=== PATIENT | female | born 1935 | race Caucasian/White ===

== ENCOUNTER 2021-01-23 15:23 | Outpatient (CLI) | payer MEDICARE, BC, SELFPAY | END 2021-01-23 15:24 | disposition home or self-care (01) | LOC: ANHCOVIDVC 15:23 | PROVIDERS: PCP Family Medicine | DX: Z23 Encounter for immunization (principal) | CPT/HCPCS: 0001A; 91300 ==

== ENCOUNTER 2021-02-13 15:31 | Outpatient (CLI) | payer MEDICARE, BC, SELFPAY | END 2021-02-13 15:32 | disposition home or self-care (01) | LOC: ANHCOVIDVC 15:31 | PROVIDERS: PCP Family Medicine | DX: Z23 Encounter for immunization (principal) | CPT/HCPCS: 0002A; 91300 ==

== ENCOUNTER 2021-12-29 14:24 | Outpatient (CLI) | payer MEDICARE, BC, SELFPAY ==
--- NOTE | ~2021-12-29 | XR_ITS ---
XR chest 2V 12/29/2021 14:43 Indication: Cough. CHF. Procedure: AP and lateral views of the chest Comparison: 05/23/2017 Findings: Bilateral patchy airspace disease. Status post median sternotomy for CABG. Cardiomegaly. No pleural effusion or pneumothorax. Impression: 1: Patchy bilateral airspace disease, left greater than right, compatible with pneumonia. 2: Cardiomegaly. Reviewed, dictated and finalized at location B. Impression: 1: Patchy bilateral airspace disease, left greater than right, compatible with pneumonia. 2: Cardiomegaly.
== END 2021-12-29 14:25 | disposition home or self-care (01) ==
LOC: ANHIMG 14:27
PROVIDERS: PCP Nurse Practitioner Family; Visit Provider Nurse Practitioner Family
DX: R05.9 Cough, unspecified (principal); R91.8 Other nonspecific abnormal finding of lung field; I51.7 Cardiomegaly
CPT/HCPCS: 71046

== ENCOUNTER 2022-01-06 06:03 | Inpatient (IN) | payer MEDICARE, BC, OTHER, SELFPAY ==
[2022-01-06] VITALS (27 sets, daily range): BP systolic 89–107; BP diastolic 42–71; PULSE 78–120; RESP 14–25; TEMP 35.5–37; O2SAT 82–100; BMI 26.8
--- NOTE | ~2022-01-06 | US_ITS ---
EXAMINATION: US retroperitoneal comp EXAM DATE: 01/09/2022 10:48 INDICATION: EFREN . TECHNIQUE: Multiple grayscale and Doppler images of the kidneys were obtained (by a technologist who performed the scan) and subsequently reviewed. Comparison is made to prior examination from 05/23/2017 . FINDINGS: Right kidney: There is normal contour and echogenicity. It measures 10.3 x 5.5 x 5.1 centimeters. Th ere is an exophytic cyst measuring 2.9 cm. There is no hydronephrosis. Left kidney: There is normal contour and echogenicity. It measures 9.1 x 4.8 x 4.5 centimeters. Ther e is a cyst measuring 1 cm. There is no hydronephrosis. Bladder unremarkable. IMPRESSION: Renal cysts. No hydronephrosis. Reviewed, dictated and finalized at location B.
--- NOTE | ~2022-01-06 | XR_ITS ---
EXAMINATION: XR chest 1V portable DATE: 01/06/2022 07:04 INDICATION: Shortness of breath TECHNIQUE: frontal view of the chest was obtained. COMPARISON: Chest radiograph dated 12/29/2021 FINDINGS: Increasing opacities in the bilateral mid and lower lung zones. The costophrenic angles consistent wi th small bilateral pleural effusions. Calcified nodule in the left lower lung zone consistent with ol d granulomatous disease. No pneumothorax. Cardiomegaly. Median sternotomy wires and mediastinal surgi richard clips are seen, likely from prior coronary artery bypass grafting. Advanced bilateral rotator cuf f arthropathy. Additional surgical clips the left side of the neck. IMPRESSION: 1. Increasing opacities in bilateral mid and lower lung zones which could represent pneumonia or pulm onary edema. 2. Small bilateral pleural effusions. 3. Cardiomegaly. Reviewed, dictated and finalized at location A. IMPRESSION: 1. Increasing opacities in bilateral mid and lower lung zones which could repre sent pneumonia or pulmonary edema. 2. Small bilateral pleural effusions. 3. Cardiomegaly.
--- NOTE | ~2022-01-06 | XR_ITS ---
EXAMINATION: XR chest 1V portable DATE: 01/08/2022 10:27 INDICATION: Leukocytosis. TECHNIQUE: A single frontal view of the chest was obtained. COMPARISON: Chest single view 01/06/2022, chest CT 01/06/2022 FINDINGS: The patient is rotated to her left. There are airspace opacities in the mid and lower lung zones with a perihilar and left basilar predominance. There are small pleural effusions. No pneumotho rax. Cardiomegaly is noted. Median sternotomy wires and mediastinal surgical clips are seen, likely f rom prior coronary artery bypass grafting. IMPRESSION: 1. Airspace opacities in the mid and lower lung zones with a perihilar and left basilar predominance with improvement on the right, consistent with pneumonia. 2. Small pleural effusions. 3. Cardiomegaly. Reviewed, dictated and finalized at location A.
--- NOTE | ~2022-01-06 | CT_ITS ---
EXAMINATION: CT diagnostic chest wo con EXAM DATE: 01/06/2022 15:29 INDICATION: Recurrent pneumonia. TECHNIQUE: Spiral CT of the chest without contrast. Axial, coronal and sagittal images of the chest were reviewed. Coronal maximum intensity pixel images of chest reviewed. The dose-length product ( DLP) for this examination was 407.00 mGy-cm. The exposure was tailored according to patient size (au to mA exposure control), and iterative reconstruction (ASIR) was used as additional dose reduction te chnique. Correlation is made to chest x-ray 01/06/2022, 12/29/2021. FINDINGS: There is patchy left lung airspace disease also with volume loss and interlobular septal t hickening. Appearance is consistent with atelectasis and pneumonia, although lymphangitic carcinomat osis is not excludable. Patchy regions bilateral lower lobe endobronchial debris. There is possible left suprahilar 1.2 cm nodule contiguous with the hilum, contrast would aid in conf irming or excluding but GFR presently in adequate. There is right lower lobe multisegmental atelectas is. There is moderate right-sided pleural effusion, small left pleural effusion. Cardiomegaly. The main, central pulmonary arteries are dilated which can indicate elevated pulmonary arterial pressure, pulmonary arterial hypertension. Sternotomy wires. Dense coronary artery calcifi cations and/or stents. Generalized body wall edema. Nonspecific generalized periportal, retroperitone al edema as well. There are no osteoblastic or osteolytic lesions identified. Correlating with recent chest x-rays, there has been progression in airspace disease, pleural effusio ns compared to 12/29. IMPRESSION: 1. Left-sided volume loss and additional airspace disease most consistent with multifocal pneumonia. 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 2. Possible left suprahilar 1.2 cm nodule. 3. Cardiomegaly, dilated pulmonary arteries. Possible CHF exacerbation. 4. Moderate right, small pleural effusions. 5. Generalized edema. Reviewed, dictated and finalized at location G.
--- NOTE | 2022-01-06 06:20 | ECG_ITS ---
Measurements Intervals [place] Rate: 91 P: ME: 0 QRS: -26 QRSD: 86 T: 194 QT: 255 QTc: 315 Interpretive Statements ATRIAL FIBRILLATION LOW QRS VOLTAGE IN PRECORDIAL LEADS [QRS DEFLECTION < 1.0 mV IN CHEST LEADS] NONSPECIFIC T-WAVE ABNORMALITY ANTERIOR MYOCARDIAL INFARCTION , OLD] INFERIOR MYOCARDIAL INFARCTION , OLD NO PREVIOUS ECG AVAILABLE FOR COMPARISON Electronically Signed On 01-07-2022 8:29:57 CDT by Jacoby Lau M.D.
[2022-01-06] MEDS: IPRATROPIUM BR 0.02% INH SOLN 0.5 MG/2.5 ML VIAL INHALATION (06:33)
[2022-01-06] MEDS: ALBUTEROL SULFATE NEB 2.5 MG/0.5 ML INH 5 MG INHALATION (06:33)
[2022-01-06] MEDS: methylPREDNISolone SOD SUCC 125 MG VIAL 80 MG IV PUSH (06:37)
[2022-01-06 06:43] LABS: Basophils Percent Auto 0.2 % (0.2-1.2); Hematocrit 34.8 % (37.0-47.0); Hemoglobin 10.3 g/dL (12.0-15.0); Immature Granulocyte Absolute 0.08 K/mm3 (0.00-0.031); Immature Granulocyte Percent A 0.5 % (0-0.5); Lymphocytes Absolute Auto 0.88 K/mm3 (0.9-3.2); Lymphocytes Percent Auto 5.1 % (18.3-44.2); Mean Corpuscular HGB Conc 29.6 g/dl (32-36); Mean Corpuscular Volume 87.9 fl (80-100); Mean Platelet Volume 9.9 fl (7.4-10.4); Monocytes Absolute Auto 1.4 K/mm3 (0.1-0.6); Monocytes Percent Auto 8.3 % (2.6-8.5); Neutrophils Absolute Auto 14.8 K/mm3 (1.3-6.7); Neutrophils Percent Auto 85.9 % (45.5-73.1); Platelet Count Result 369 k/mm3 (150-375); Red Blood Count 3.96 M/mm3 (4.2-5.4); Red Cell Distribution Width 16.5 % (11.5-14.5); White Blood Count 17.3 K/mm3 (4.5-10.0)
[2022-01-06 06:47] LABS: Base Excess ABG -2.1 mEq/l (+/-2.0); Fractional Inspired Oxygen 28 %; Oxygen Content ABG 15.6 %vol (16.0-22.0); Oxygen Saturation ABG 98.4 % (95.0-100.0); Oxyhemoglobin 97.1 % THb (90.0-100.0); PO2 FiO2 Ratio Arterial Blood 5.18 %; Total Hemoglobin 11.2 g/dL (12.0-18.0)
[2022-01-06 06:49] LABS: PCO2 ABG 61.6 mmHg (35.0-45.0); pH ABG 7.243 (7.350-7.450)
[2022-01-06 06:50] LABS: Device NASAL CANNULA; Modified Allen's Test Pass; Site Drawn RIGHT RADIAL
[2022-01-06 06:52] LABS: Anion Gap 4 mmol/L (8-16); Blood Urea Nitrogen 63 mg/dL (7-17); Carbon Dioxide 30 mmol/L (22-30); Chloride 100 mmol/L (98-107); Estimated CRCL calculation 21 ml/min; Estimated Glomerular Filt Rate 29; Glucose 148 mg/dL (65-110); Potassium 4.2 mmol/L (3.4-5.0); Sodium 134 mmol/L (137-145)
[2022-01-06 06:55] LABS: INR 3.3; Prothrombin Time 32.5 Seconds (11.1-14.7)
--- NOTE | 2022-01-06 06:58 | PC.NURSE ---
pt cool to touch. bear hugger applied. will continue to monitor.
--- NOTE | 2022-01-06 07:00 | PC.NURSE ---
Assumed care of pt. at this time. Report from NANO [place]
[2022-01-06 07:05] LABS: NT Pro B Type Natriuretic Pept 3170 pg/mL (5-100); Troponin I < 0.012 ng/mL (0.000-0.034)
--- NOTE | 2022-01-06 07:24 | ED.SOB ---
HPI - SOB/Dyspnea General Chief Complaint: Shortness of Breath/Dyspnea Stated Complaint: SOB, WEAK Time Seen by Provider: 01/06/22 07:01 Source: patient, family and RN notes reviewed History of Present Illness HPI Narrative: 86-year-old female presented emerge department for evaluation of worsening shortness of breath. Patient was recently treated as an outpatient for pneumonia and completed her antibiotics yesterday. Family states that the patient has been having worsening short of breath and woke up with further increased difficulty breathing this morning. Upon arrival to the emergency department patient was placed on BiPAP due to increased work of breathing. Patient states she does feel improved on the BiPAP. Family states that patient began having worsening lower extremity edema yesterday. Related Data Home Medications Medication Instructions Recorded Confirmed aspirin 81 mg tablet,delayed 81 mg PO DAILY 12/04/19 12/29/21 release cholecalciferol (vitamin D3) 25 1,000 unit PO DAILY 12/04/19 12/29/21 mcg (1,000 unit) capsule ezetimibe 10 mg tablet 10 mg PO DAILY 12/04/19 12/29/21 losartan 25 mg tablet 25 mg PO DAILY 12/04/19 12/29/21 metoprolol succinate 25 mg 25 mg PO DAILY 12/04/19 12/29/21 tablet,extended release 24 hr nitroglycerin 0.2 mg/hr 1 patch TRANSDERM DAILY 12/04/19 12/29/21 transdermal 24 hour patch simvastatin 40 mg tablet 40 mg PO DAILY 12/04/19 12/29/21 multivitamin 1 tablet PO DAILY 12/07/19 12/29/21 nitroglycerin 0.4 mg sublingual 0.4 mg SUBLINGUAL Q5M PRN 12/07/19 12/29/21 tablet diltiazem HCl 120 mg 120 mg PO BID cap 01/18/21 12/29/21 capsule,extended release 24 hr metoprolol tartrate 50 mg tablet 75 mg PO HS tablet 01/18/21 12/29/21 docusate sodium 100 mg capsule 100 mg PO BID cap 06/09/21 12/29/21 furosemide 40 mg tablet 60 mg PO QAM tablet 12/29/21 12/29/21 warfarin 1 mg tablet 2 mg PO 4XW tablet 12/29/21 12/29/21 warfarin 4 mg tablet 4 mg PO 3XW tablet 12/29/21 12/29/21 levothyroxine 125 mcg PO DAILY 01/06/22 Allergies Allergy/AdvReac Type Severity Reaction Status Date / Time Penicillins Allergy Unknown unknown Verified 12/29/21 13:07 Review of Systems Review of Systems: CONSTITUTIONAL: Denies fever, chills, or sweats. EYES: Denies visual changes, redness, or discharge. ENT: Denies rhinorrhea, congestion, sore throat, or otalgia. CARDIOVASCULAR: Denies chest pain, palpitations, or edema. RESPIRATORY: worsening SOB GASTROINTESTINAL: Denies abdominal pain, nausea, vomiting, or diarrhea. GENITOURINARY: Denies dysuria or hematuria. SKIN: Denies rash or itching. MUSCULOSKELETAL: Denies back pain, joint pain, or myalgia. NEUROLOGIC: Denies headache, numbness, or weakness. [facility] Past Medical History Medical History (Updated 01/06/22 @ 09:09 by Bruno Martinez MD) Anemia Bilateral shoulder pain CAD (coronary artery disease) Chronic a-fib CKD (chronic kidney disease) Diabetes mellitus Diabetic retinopathy Elevated liver enzymes Essential (primary) hypertension Hyperlipidemia Hypothyroidism (acquired) Skin cancer Left arm 2018 Stress incontinence Surgical History Surgical History H/O thyroidectomy 2000 History of eye surgery Hx of CABG 2000 Family History Family History Sibling Family history of malignant neoplasm Family history of diabetes mellitus in first degree relative Family history of heart disease in male family member before age 55 Family history of coronary artery disease Mother Family history of heart disease in male family member before age 55 Family history of coronary artery disease Family history of cardiovascular disease Father Family history of coronary artery disease Other Cerebrovascular accident Social History Social History (Updated 12/29/21 @ 14:12 by Allyson Shaffer NP) Social History: , patient lives with
[2022-01-06 07:30] LABS: Partial Thromboplastin Time 43.2 SECONDS (22.3-36.8)
[2022-01-06] MEDS: SODIUM CHLORIDE 0.9% IV 500 ML 250 ML IV CONT (08:20)
[2022-01-06 09:07] LABS: Influenza A QL RT-PCR Negative (Negative); Influenza B QL RT-PCR Negative (Negative); SARS-CoV-2 RNA PCR Negative
--- NOTE | 2022-01-06 10:08 | PC.NURSE ---
per pt. family member and pt. wishes pt. is a DNR
[2022-01-06 10:35] LABS: Lactic Acid Reflex 0.8 mmol/L (0.7-2.1)
[2022-01-06 10:36] LABS: Alveolar/Arterial O2 Gradient 141.2 mmHg; Base Excess ABG -0.8 mEq/l (+/-2.0); Fractional Inspired Oxygen 40 %; HCO3 ABG 25.8 mEq/l (22.0-26.0); Oxygen Content ABG 13.9 %vol (16.0-22.0); Oxygen Saturation ABG 95.5 % (95.0-100.0); Oxyhemoglobin 94.4 % THb (90.0-100.0); PCO2 ABG 51.5 mmHg (35.0-45.0); PO2 ABG 84.8 mmHg (80.0-100.0); PO2 FiO2 Ratio Arterial Blood 2.12 %; Total Hemoglobin 10.4 g/dL (12.0-18.0); pH ABG 7.317 (7.350-7.450)
[2022-01-06 10:37] LABS: Site Drawn RIGHT BRACHIAL
[2022-01-06 10:38] LABS: Device NON-INVASIVE VENT; Non-Invasive Expiratory Pressure 5 CMH2O; Non-Invasive Inspiratory Pressure 12 CMH2O; Non-Invasive Vent Rate 20 /MIN
--- NOTE | 2022-01-06 12:13 | ADMGEN ---
This patient, Caryl Dykes, was admitted to IMU Room 207-01. Patient/family oriented to hospital policies and general routines including ID bracelet, bed and alarms, visiting hours, pain management, procedures, bathroom and other care routines, personal items, smoking policy, room service/diet, and visiting hours. Information on how to activate the Rapid Response Team has been discussed. Patient/Family are encouraged to report perceived risks to care and to ask questions if they do not understand what they are told or what they should do.
[2022-01-06 12:48] LABS: Glucose Point of Care 176 mg/dl (65-105)
[2022-01-06] MEDS: PIPERACILLIN/TAZOBACTAM SOD 2.25 GM in SODIUM CHLORIDE 0.9% IV 50 ML 100 ML IVPB ×2 (14:05→20:46)
--- NOTE | 2022-01-06 14:31 | PM.IMHP ---
H&P: HPI History of Present Illness Date/Time: 01/06/22 14:31 this is an 86-year-old female patient who resides at home and lives with her grandson. The daughter is at the bedside assisting with the questions. Her daughter is an RN. The patient is not aware of having congestive heart failure however she has been told that she does have fluid overload. The patient watches her salt at home and weighs herself. She also takes off her medicine as prescribed including her diuretics. The patient has been more short of breath. She does not wear any oxygen at home. The patient was recently treated as an outpatient for pneumonia with azithromycin and Levaquin. She has completed all of her antibiotics and is not feeling any better. The patient is not able to lay flat and has shortness of breath with minimal exertion. Upon arrival to the emergency room the patient had oxygen levels in the 70 percentile. She initially was placed on a CPAP and then on a BiPAP 12/5. When I examined the patient she was on oxygen at 3 L and satting 97%. She is able to talk in full sentences but gets short of breath easily. The patient stated that she has had an echo but does not recall when she had it performed last. She has increased swelling to her lower extremities. Her white count is 17.3. H&H is 10.3 and 34.8. The patient has iron deficiency anemia but is not able to tolerate the iron. Her chest x-ray from today was read as the following 1. Increasing opacities in bilateral mid and lower lung zones which could represent pneumonia or pulmonary edema. 2. Small bilateral pleural effusions. 3. Cardiomegaly. The patient was given Zosyn, Solu-Medrol, Lasix, and nebulizer treatment in the emergency room. The patient has a history of atrial fibrillation and is taking Coumadin however her INR was up to 7 at 1 point with the antibiotic she had been taking and she has been holding her Coumadin for 3 days. Her INR is 3.3 today. Initial ABGs her pH was 7.243 and with the BiPAP it came up to 7.317. CO2 was 61.6 and came down to 51.5 with the BiPAP. Patient is currently on oxygen at 3 L. the patient is being admitted to inpatient services to IMU on the date of service of 01/07/2020. Chief Complaint: Shortness of breath Review of Systems Review of Systems: All systems reviewed & are unremarkable except as noted in HPI and below Constitutional: Constitutional: Reports as per HPI and Reports no additional constitutional complaints Eyes: Eyes: Reports as per HPI and Reports no additional eye complaints ENT: Reports system reviewed and no additional complaints, except as documented and Reports Normal hearing present Cardiovascular: Cardiovascular: Reports no additional cardiovascular complaints Respiratory: Respiratory: Reports no additional respiratory complaints and Reports no additional respiratory complaints Gastrointestinal: Gastrointestinal: Reports as per HPI and Reports no additional gastrointestinal complaints Musculoskeletal: Musculoskeletal: Reports no additional musculoskeletal complaints Integumentary/Breasts: Skin/Breast: Reports system reviewed and no additional complaints, except as docu and Reports as per HPI Neurologic: Reports system reviewed and no additional complaints, except as documented, Reports as per HPI and Reports Normal hearing present Psychiatric: Psychiatric: Reports no additional psychiatric complaints and Reports as per HPI Endocrine: Endocrine: Reports no additional endocrine complaints Hematologic/Lymphatic: Hematologic/Lymphatic: Reports no additional hematologic/lymphatic complaints Allergic/Immunologic: Allergic/Immunologic: Reports no additional allergic/immunologic complaints [facility] Past Medical History Medical History (Updated 01/06/22 @ 15:05 by Yamila Williamson NP) Anemia Bilateral shoulder pain CAD (coronary artery disease) Chronic a-fib CKD (chronic kidney disease) Diabetes mellitus Diabetic retinopathy Elevated liver e
[2022-01-06 16:41] LABS: Glucose Point of Care 186 mg/dl (65-105)
[2022-01-06] MEDS: TOLNAFTATE 1% POWDER 45 GM BTL 1 APPLIC TOPICAL (17:35)
[2022-01-06] MEDS: DOCUSATE SODIUM 100 MG CAPSULE PO (17:35)
[2022-01-06 20:32] LABS: Glucose Point of Care 251 mg/dl (65-105)
[2022-01-06] MEDS: INSULIN GLARGINE (*BKC) 100 UNITS/ML 12 UNITS SUB-Q (20:52)
[2022-01-06 20:59] LABS: Glucose Point of Care 246 mg/dl (65-105)
[2022-01-06 23:01] LABS: Anion Gap 4 mmol/L (8-16); Blood Urea Nitrogen 66 mg/dL (7-17); Calcium 7.4 mg/dL (8.4-10.2); Carbon Dioxide 28 mmol/L (22-30); Chloride 99 mmol/L (98-107); Estimated CRCL calculation 19 ml/min; Estimated Glomerular Filt Rate 25; Glucose 240 mg/dL (65-110); Potassium 4.6 mmol/L (3.4-5.0); Sodium 131 mmol/L (137-145)
[2022-01-07] VITALS (19 sets, daily range): BP systolic 81–141; BP diastolic 50–79; PULSE 74–111; RESP 14–24; TEMP 36.4–36.6; O2SAT 94–100
--- NOTE | 2022-01-07 00:11 | PC.NURSE ---
Pt as hypotensive @ 2100 BP 91/48 HR 97 Metoprolol 50mg oral scheduled for 2099. Dr. Yamila Williamson informed of pts BP and ordered to hold metoprolo 50mg oral and retake bp @ 2330. Bp reatken @ 2330 81/[address] Williamson informed and ordered to hold metoprolol until furthur notice. Medication held patient sleeping quietly no complaints. Will continue to monitor patient for any changes.
[2022-01-07] MEDS: PIPERACILLIN/TAZOBACTAM SOD 2.25 GM in SODIUM CHLORIDE 0.9% IV 50 ML 100 ML IVPB ×4 (01:41→21:28)
[2022-01-07 04:35] LABS: Basophils Percent Auto 0.1 % (0.2-1.2); Hematocrit 30.8 % (37.0-47.0); Hemoglobin 9.5 g/dL (12.0-15.0); Immature Granulocyte Absolute 0.07 K/mm3 (0.00-0.031); Immature Granulocyte Percent A 0.4 % (0-0.5); Lymphocytes Absolute Auto 0.36 K/mm3 (0.9-3.2); Lymphocytes Percent Auto 2.2 % (18.3-44.2); Mean Corpuscular HGB Conc 30.8 g/dl (32-36); Mean Corpuscular Hemoglobin 26.5 pg (26-34); Mean Corpuscular Volume 85.8 fl (80-100); Mean Platelet Volume 9.3 fl (7.4-10.4); Monocytes Absolute Auto 1.1 K/mm3 (0.1-0.6); Monocytes Percent Auto 6.9 % (2.6-8.5); Neutrophils Absolute Auto 14.5 K/mm3 (1.3-6.7); Neutrophils Percent Auto 90.4 % (45.5-73.1); Platelet Count Result 292 k/mm3 (150-375); Red Blood Count 3.59 M/mm3 (4.2-5.4); Red Cell Distribution Width 16.3 % (11.5-14.5); White Blood Count 16.1 K/mm3 (4.5-10.0)
[2022-01-07 04:47] LABS: Lactic Acid Reflex 0.9 mmol/L (0.7-2.1)
[2022-01-07 04:48] LABS: INR 3.4; Prothrombin Time 33.2 Seconds (11.1-14.7)
[2022-01-07 04:54] LABS: Hemoglobin A1C 6.1 % (<5.7)
[2022-01-07 04:58] LABS: Alanine Aminotransferase 22 U/L (4-35); Albumin Level 2.6 g/dL (3.5-5.1); Alkaline Phosphatase 64 U/L (38-126); Anion Gap 4 mmol/L (8-16); Aspartate Amino Transferase 39 U/L (14-36); Bilirubin,Total 0.4 mg/dL (0.2-1.3); Blood Urea Nitrogen 68 mg/dL (7-17); Calcium 7.5 mg/dL (8.4-10.2); Carbon Dioxide 29 mmol/L (22-30); Chloride 100 mmol/L (98-107); Estimated CRCL calculation 19 ml/min; Estimated Glomerular Filt Rate 25; Glucose 199 mg/dL (65-110); Magnesium 2.8 mg/dL (1.6-2.3); Potassium 4.7 mmol/L (3.4-5.0); Sodium 133 mmol/L (137-145)
[2022-01-07 05:09] LABS: CRP 14.1 mg/dL (<1.0)
[2022-01-07] MEDS: LEVOTHYROXINE SODIUM 125 MCG TABLET PO (06:18)
[2022-01-07 07:47] LABS: Glucose Point of Care 176 mg/dl (65-105)
[2022-01-07] MEDS: MULTIVITAMINS THERAPEUTIC TAB (*BKC) 1 TABLET PO (08:29)
[2022-01-07] MEDS: CHOLECALCIFEROL 1,000 UNITS TABLET 3000 UNITS PO (08:29)
[2022-01-07] MEDS: BISACODYL 10 MG SUPPOSITORY RECTAL (08:29)
[2022-01-07] MEDS: TOLTERODINE TARTRATE LA 4 MG CAP.ER.24H PO (08:30)
[2022-01-07] MEDS: FERROUS SULFATE 324 MG TABLET PO (08:30)
[2022-01-07] MEDS: DOCUSATE SODIUM 100 MG CAPSULE PO (08:30)
[2022-01-07] MEDS: ASPIRIN 81 MG ENTERIC TABLET PO (08:30)
[2022-01-07] MEDS: FUROSEMIDE INJ 40 MG/4 ML VIAL IV PUSH (08:30)
[2022-01-07] MEDS: METOPROLOL TARTRATE 25 MG TABLET 75 MG PO (08:31)
[2022-01-07] MEDS: EZETIMIBE 10 MG TABLET PO (08:31)
[2022-01-07] MEDS: INSULIN GLARGINE (*BKC) 100 UNITS/ML 12 UNITS SUB-Q ×2 (08:32→22:16)
[2022-01-07] MEDS: NITROGLYCERIN 0.2 MG/HR PATCH 1 PATCH TRANSDERM (08:32)
[2022-01-07] MEDS: SIMVASTATIN 20 MG TABLET 40 MG PO (08:32)
[2022-01-07] MEDS: TOLNAFTATE 1% POWDER 45 GM BTL 1 APPLIC TOPICAL ×2 (08:33→18:07)
[2022-01-07 11:59] LABS: Glucose Point of Care 254 mg/dl (65-105)
--- NOTE | 2022-01-07 12:41 | PC.NURSE ---
spoke with Dr. Ayala regarding pt blood pressure medications, lopressor was held overnight and losartan was held this AM. Per MD place 2100 metoprolol on hold and AM losartan on hold. pt blood pressure systolic in low 100's at baseline. Goal SBP greater than 90. monitor blood pressures and response to medication titration.
[2022-01-07] MEDS: INSULIN ASPART (*BKC) 100 UNITS/ML SUB-Q (12:45)
--- NOTE | 2022-01-07 15:24 | PM.IMPN ---
Progress Note: A&P Assessment and Plan (1) Hypoxia: Code(s): R09.02 - Hypoxemia Status: Acute Assessment and Plan: 01/07/2022t readmitted for worsening pneumonia and pulmonary edema The patient was initially on a BiPAP and then placed on a CPAP patient was started on antibiotics and IV Lasix. Patient's respiratory status improved and she was placed on oxygen at 3 L per nasal cannula. Patient does not wear oxygen. Chest x-ray as mentioned above 1. Increasing opacities in bilateral mid and lower lung zones which could represent pneumonia or pulmonary edema. 2. Small bilateral pleural effusions. 3. Cardiomegaly. (2) CHF (congestive heart failure): Qualifiers: Heart failure chronicity: acute on chronic Heart failure type: unspecified Qualified Code(s): I50.9 - Heart failure, unspecified Code(s): I50.9 - Heart failure, unspecified Status: Acute Assessment and Plan: Patient's Lasix was changed to IV watch 01/07/2022 BMP and echo ordered (3) Pneumonia: Qualifiers: Laterality: unspecified laterality Lung location: unspecified part of lung Pneumonia type: due to unspecified organism Qualified Code(s): J18.9 - Pneumonia, unspecified organism Code(s): J18.9 - Pneumonia, unspecified organism Status: Acute Assessment and Plan: The patient has already completed a home dose of azithromycin Levaquin. 01/07/2022 watch W[facility] watch BC pt transitioned to IV vanc/ zosyn yesterday (4) CKD (chronic kidney disease): Code(s): N18.9 - Chronic kidney disease, unspecified Status: Chronic Assessment and Plan: Stage 3-4. Her GFR is 29 today. Her creatinine is slightly worse her baseline is somewhere between 1.21 and 1.44. 01/07 continue to watch BMP (5) Chronic a-fib: Code(s): I48.20 - Chronic atrial fibrillation, unspecified Status: Acute Assessment and Plan: 01/07 watch daily INrs. The patient remains in atrial fibrillation. Continue with diltiazem (6) Anemia: Qualifiers: Anemia type: iron deficiency Iron deficiency anemia type: unspecified iron deficiency Qualified Code(s): D50.9 - Iron deficiency anemia, unspecified Code(s): D64.9 - Anemia, unspecified Status: Acute Assessment and Plan: continue to monitor. (7) CAD (coronary artery disease): Qualifiers: Coronary Disease-Associated Artery/Lesion type: unspecified vessel or lesion type [place] vs. transplanted heart: [place] heart Associated angina: without angina Qualified Code(s): I25.10 - Atherosclerotic heart disease of [place] coronary artery without angina pectoris Code(s): I25.10 - Atherosclerotic heart disease of [place] coronary artery without angina pectoris Status: Acute Assessment and Plan: The patient has a history of bypass graft. She is on metoprolol. Continue with aspirin. (8) Hyperlipidemia: Qualifiers: Hyperlipidemia type: unspecified Qualified Code(s): E78.5 - Hyperlipidemia, unspecified Code(s): E78.5 - Hyperlipidemia, unspecified Status: Acute Assessment and Plan: Continue with Zetia (9) Essential (primary) hypertension: Code(s): I10 - Essential (primary) hypertension Status: Acute Assessment and Plan: Continue with metoprolol, Lasix, and losartan. 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
[2022-01-07 16:54] LABS: Glucose Point of Care 137 mg/dl (65-105)
[2022-01-07 19:41] LABS: Glucose Point of Care 107 mg/dl (65-105)
[2022-01-07 22:25] LABS: Glucose Point of Care 102 mg/dl (65-105)
[2022-01-07 22:25] LABS: Glucose Point of Care 120 mg/dl (65-105)
[2022-01-08] VITALS (16 sets, daily range): BP systolic 80–124; BP diastolic 45–103; PULSE 80–123; RESP 16–22; TEMP 36.3–36.9; O2SAT 95–100; BMI 27.1
[2022-01-08] MEDS: PIPERACILLIN/TAZOBACTAM SOD 2.25 GM in SODIUM CHLORIDE 0.9% IV 50 ML 100 ML IVPB (02:04)
[2022-01-08 02:37] LABS: Glucose Point of Care 123 mg/dl (65-105)
[2022-01-08 05:34] LABS: Hematocrit 33.3 % (37.0-47.0); Hemoglobin 9.9 g/dL (12.0-15.0); Mean Corpuscular HGB Conc 29.7 g/dl (32-36); Mean Corpuscular Hemoglobin 26.3 pg (26-34); Mean Corpuscular Volume 88.6 fl (80-100); Mean Platelet Volume 9.5 fl (7.4-10.4); Platelet Count Result 292 k/mm3 (150-375); Red Blood Count 3.76 M/mm3 (4.2-5.4); Red Cell Distribution Width 16.8 % (11.5-14.5); White Blood Count 18.4 K/mm3 (4.5-10.0)
--- NOTE | 2022-01-08 06:00 | ECHO_ITS ---
Patient Info Name: Caryl Dykes Age: 86 years : 1935 Gender: Female Ht: 67 in Wt: 171 lbs BSA: 1.93 m2 HR: 88 bpm BP: 99 / 50 mmHg Heart Rhythm: Atrial Fibrillation Technical Quality: Fair Exam Date: 01/08/2022 7:40 AM Exam Location: [facility] Patient Status: Inpatient Admit Date: 01/06/2022 Staff Ordering Physician: Bruno Martinez MD Lens Engraver: Ya Virgen RDCS Attending Provider: Elver Kulkarni MD Referring Physician: Juan CARNEY; Exam Type: CA echo doppler color flow Study Info Indications - CHF EXACERBATION Complete two-dimensional, color flow and Doppler transthoracic echocardiogram is performed. Summary 1. Complete two-dimensional, color flow and Doppler transthoracic echocardiogram is performed. 2. Left ventricular chamber dimension is mildly enlarged. 3. Ventricular septum is sigmoid shaped. No LVOT obstruction. 4. Left ventricular systolic function is moderately reduced, estimated at 40-45%. 5. The left ventricular diastolic function is abnormal. 6. E/e' 24 is elevated. 7. Atrial fibrillation. 8. Right ventricular systolic function is moderately reduced and with abnormal TAPSE 0.9 cm. 9. Left atrial chamber dimension is moderately enlarged. 10. Right atrial chamber dimension is moderately enlarged. 11. There is mild aortic valve sclerosis. 12. The mitral valve has moderately calcified annulus. 13. There is moderate mitral valve regurgitation. 14. There is moderate tricuspid valve regurgitation. 15. No pulmonary hypertension, estimated pulmonary arterial systolic pressure is 39 mmHg. 16. Normal inferior vena cava with <50% collapse upon inspiration consistent with elevated right atrial pressure, 10 mmHg. 17. There is trivial pericardial effusion. Left Ventricle Atrial fibrillation. E/e' 24 is elevated. Ventricular septum is sigmoid shaped. No LVOT obstruction. Left ventricular chamber dimension is mildly enlarged. Left ventricular systolic function is moderately reduced, estimated at 40-45%. The left ventricular diastolic function is abnormal. Right Ventricle Right ventricular systolic function is moderately reduced and with abnormal TAPSE 0.9 cm. Right ventricular chamber dimension is normal. Left Atria Left atrial chamber dimension is moderately enlarged. Right Atria Right atrial chamber dimension is moderately enlarged. Aortic Valve The aortic valve is trileaflet. There is mild aortic valve sclerosis. There is no aortic valve stenosis. There is no aortic valve regurgitation. Pulmonic Valve There is no pulmonic regurgitation. Mitral Valve The mitral valve has moderately calcified annulus. There is no mitral valve stenosis. There is moderate mitral valve regurgitation. Tricuspid Valve There is moderate tricuspid valve regurgitation. No pulmonary hypertension, estimated pulmonary arterial systolic pressure is 39 mmHg. Pericardium/Pleural There is trivial pericardial effusion. Inferior Vena Cava Normal inferior vena cava with <50% collapse upon inspiration consistent with elevated right atrial pressure, 10 mmHg. Aorta The aortic root size at the sinus of Valsalva is normal. Left Ventricular Outflow Tract Name Value Normal LVOT 2D
[2022-01-08 06:01] LABS: Anion Gap 6 mmol/L (8-16); Blood Urea Nitrogen 81 mg/dL (7-17); Calcium 7.4 mg/dL (8.4-10.2); Carbon Dioxide 24 mmol/L (22-30); Chloride 100 mmol/L (98-107); Estimated CRCL calculation 17 ml/min; Estimated Glomerular Filt Rate 22; Glucose 82 mg/dL (65-110); Potassium 4.9 mmol/L (3.4-5.0); Sodium 130 mmol/L (137-145)
[2022-01-08] MEDS: LEVOTHYROXINE SODIUM 125 MCG TABLET PO (06:41)
[2022-01-08 07:59] LABS: INR 2.7; Prothrombin Time 27.5 Seconds (11.1-14.7)
[2022-01-08 08:41] LABS: Glucose Point of Care 57 mg/dl (65-105)
[2022-01-08] MEDS: ASPIRIN 81 MG ENTERIC TABLET PO (09:02)
[2022-01-08] MEDS: CHOLECALCIFEROL 1,000 UNITS TABLET 3000 UNITS PO (09:02)
[2022-01-08] MEDS: FERROUS SULFATE 324 MG TABLET PO (09:03)
[2022-01-08] MEDS: DOCUSATE SODIUM 100 MG CAPSULE PO (09:03)
[2022-01-08] MEDS: EZETIMIBE 10 MG TABLET PO (09:03)
[2022-01-08] MEDS: SIMVASTATIN 20 MG TABLET 40 MG PO (09:04)
[2022-01-08] MEDS: MULTIVITAMINS THERAPEUTIC TAB (*BKC) 1 TABLET PO (09:04)
[2022-01-08] MEDS: TOLNAFTATE 1% POWDER 45 GM BTL 1 APPLIC TOPICAL ×2 (09:05→17:59)
[2022-01-08] MEDS: TOLTERODINE TARTRATE LA 4 MG CAP.ER.24H PO (09:05)
--- NOTE | 2022-01-08 09:40 | PC.NURSE ---
0915-informed by jamarcus Salguero, that pt's blood sugar was 57. Gave 2 OJ and pt ate breakfast. Repeat blood sugar was 94
[2022-01-08 10:22] LABS: Glucose Point of Care 94 mg/dl (65-105)
[2022-01-08 13:33] LABS: Glucose Point of Care 183 mg/dl (65-105)
[2022-01-08] MEDS: SODIUM CHLOR 3% 15 ML NEB (RESPIRATORY THERAPY) 6 ML INHALATION (14:06)
--- NOTE | 2022-01-08 14:21 | P.CDI_ITS ---
CDI Query Clarification Request -CHF (congestive heart failure): -Heart failure chronicity: acute on chronic Heart failure type: unspecified Qualified Code(s): I50.9 - Heart failure, unspecified I50.9 - Heart failure, unspecified -Assessment and Plan: Patient's Lasix was changed to IV but we will have to monitor her renal function. An echo has been ordered for tomorrow. Continue with metoprolol and losartan. Continue to monitor renal function. -CHF has been documented -Echo summary: Left ventricular systolic function is moderately reduced, estimated at 40-45%. -The left ventricular diastolic function is abnormal. 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
[2022-01-08 16:34] LABS: Glucose Point of Care 186 mg/dl (65-105)
[2022-01-08] MEDS: WARFARIN (*PBKC) 2 MG TABLET PO (17:59)
[2022-01-08 20:04] LABS: Glucose Point of Care 184 mg/dl (65-105)
[2022-01-08] MEDS: INSULIN GLARGINE (*BKC) 100 UNITS/ML 12 UNITS SUB-Q (20:26)
--- NOTE | 2022-01-08 20:49 | PM.IMPN ---
Progress Note: A&P Assessment and Plan (1) Hypoxia: Code(s): R09.02 - Hypoxemia Status: Acute Assessment and Plan: 01/07/2022t readmitted for worsening pneumonia and pulmonary edema The patient was initially on a BiPAP and then placed on a CPAP patient was started on antibiotics and IV Lasix. Patient's respiratory status improved and she was placed on oxygen at 3 L per nasal cannula. Patient does not wear oxygen. Chest x-ray as mentioned above 1. Increasing opacities in bilateral mid and lower lung zones which could represent pneumonia or pulmonary edema. 2. Small bilateral pleural effusions. 3. Cardiomegaly. -CXR improved this morning but leukocytosis worsened overnight. Continues to require oxygen. Changed antibiotics to cefepime and vancomycin (pharmacy to dose). Will hold levofloxacin for now due to interaction with warfarin. 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 Need a better understand of home/office BP. Will discuss records with daughter tomorrow. (3) Pneumonia: Qualifiers: Laterality: unspecified laterality Lung location: unspecified part of lung Pneumonia type: due to unspecified organism Qualified Code(s): J18.9 - Pneumonia, unspecified organism Code(s): J18.9 - Pneumonia, unspecified organism Status: Acute Assessment and Plan: The patient has already completed a home dose of azithromycin Levaquin outpatient. Started on zosyn but was never given vancomycin. -Cefepime and Vancomycin started today -MRSA swab sent (4) CKD (chronic kidney disease): Code(s): N18.9 - Chronic kidney disease, unspecified Status: Chronic Assessment and Plan: Stage 3-4. Her GFR is 29 today. Her creatinine is slightly worse her baseline is somewhere between 1.21 and 1.44. EFREN with creatinine 2.10 today. -Check urine lytes -Renal US (5) Chronic a-fib: Code(s): I48.20 - Chronic atrial fibrillation, unspecified Status: Acute Assessment and Plan: 01/07 watch daily INrs. The patient remains in atrial fibrillation. Continue with diltiazem. INR within range today. Plan to restart warfarin this evening. (6) Anemia: Qualifiers: Anemia type: iron deficiency Iron deficiency anemia type: unspecified iron deficiency Qualified Code(s): D50.9 - Iron deficiency anemia, unspecified Code(s): D64.9 - Anemia, unspecified Status: Acute Assessment and Plan: continue to monitor. (7) CAD (coronary artery disease): Qualifiers: Associated angina: without angina Coronary Disease-Associated Artery/Lesion type: unspecified vessel or lesion type [place] vs. transplanted heart: [place] heart Qualified Code(s): I25.10 - Atherosclerotic heart disease of [place] coronary artery without angina pectoris Code(s): I25.10 - Atherosclerotic heart disease of [place] coronary artery without angina pectoris Status: Acute Assessment and Plan: The patient has a history of bypass graft. She is on metoprolol. Continue with aspirin. (8) Hyperlipidemia: Qualifiers: Hyperlipidemia type: unspecified Qualified Code(s): E78.5 - Hyperlipidemia, unspecified Code(s): E78.5 - Hyperlipidemia, unspecified Status: Acute Assessment and Plan: Continue with Zetia (9) Essential (primary) hypertension: Code(s): I10 - Essential (primary) hypertension Status: Acute Assessment and Plan: Continue with metoprolol, Lasix, and losartan. Bp low contine to watch (10) Hyp
[2022-01-09] VITALS (20 sets, daily range): BP systolic 85–113; BP diastolic 60–95; PULSE 85–137; RESP 15–20; TEMP 35.6–36.6; O2SAT 94–100
[2022-01-09 05:17] LABS: Basophils Percent Auto 0.2 % (0.2-1.2); Eosinophils Percent Auto 0.1 % (0-4.4); Hematocrit 33.9 % (37.0-47.0); Hemoglobin 9.9 g/dL (12.0-15.0); Immature Granulocyte Absolute 0.12 K/mm3 (0.00-0.031); Immature Granulocyte Percent A 0.8 % (0-0.5); Lymphocytes Absolute Auto 0.78 K/mm3 (0.9-3.2); Lymphocytes Percent Auto 5.1 % (18.3-44.2); Mean Corpuscular HGB Conc 29.2 g/dl (32-36); Mean Corpuscular Hemoglobin 26.1 pg (26-34); Mean Corpuscular Volume 89.2 fl (80-100); Mean Platelet Volume 9.2 fl (7.4-10.4); Monocytes Absolute Auto 1.1 K/mm3 (0.1-0.6); Monocytes Percent Auto 7.2 % (2.6-8.5); Neutrophils Absolute Auto 13.3 K/mm3 (1.3-6.7); Neutrophils Percent Auto 86.6 % (45.5-73.1); Platelet Count Result 303 k/mm3 (150-375); Red Cell Distribution Width 16.7 % (11.5-14.5); White Blood Count 15.4 K/mm3 (4.5-10.0)
[2022-01-09 05:29] LABS: Anion Gap 5 mmol/L (8-16); Blood Urea Nitrogen 87 mg/dL (7-17); Calcium 7.5 mg/dL (8.4-10.2); Carbon Dioxide 26 mmol/L (22-30); Chloride 99 mmol/L (98-107); Estimated CRCL calculation 14 ml/min; Estimated Glomerular Filt Rate 17; Glucose 138 mg/dL (65-110); Potassium 4.5 mmol/L (3.4-5.0); Sodium 130 mmol/L (137-145)
[2022-01-09 05:30] LABS: INR 2.1; Prothrombin Time 22.7 Seconds (11.1-14.7)
[2022-01-09] MEDS: LEVOTHYROXINE SODIUM 125 MCG TABLET PO (05:50)
[2022-01-09 07:17] LABS: Anisocytosis 1+ (NORMAL); Ovalocytes 1+ (NORMAL); Platelet Estimate Adequate (Adequate)
[2022-01-09 08:29] LABS: Glucose Point of Care 125 mg/dl (65-105)
[2022-01-09] MEDS: ASPIRIN 81 MG ENTERIC TABLET PO (09:26)
[2022-01-09] MEDS: CHOLECALCIFEROL 1,000 UNITS TABLET 3000 UNITS PO (09:27)
[2022-01-09] MEDS: DOCUSATE SODIUM 100 MG CAPSULE PO (09:27)
[2022-01-09] MEDS: EZETIMIBE 10 MG TABLET PO (09:28)
[2022-01-09] MEDS: SIMVASTATIN 20 MG TABLET 40 MG PO (09:29)
[2022-01-09] MEDS: MULTIVITAMINS THERAPEUTIC TAB (*BKC) 1 TABLET PO (09:29)
[2022-01-09] MEDS: FERROUS SULFATE 324 MG TABLET PO (09:35)
[2022-01-09] MEDS: TOLTERODINE TARTRATE LA 4 MG CAP.ER.24H PO (09:51)
[2022-01-09] MEDS: TOLNAFTATE 1% POWDER 45 GM BTL 1 APPLIC TOPICAL ×2 (10:04→16:40)
[2022-01-09] MEDS: INSULIN GLARGINE (*BKC) 100 UNITS/ML 12 UNITS SUB-Q ×2 (10:07→20:45)
--- NOTE | 2022-01-09 10:10 | PCPTNOTE ---
The patient treatment was not able to be completed at this time per RN. RN states that the pt is weak and they just got her settled. Will plan to continue treatment per plan of care.
--- NOTE | 2022-01-09 11:41 | PCOTNOTE ---
Attempted to see patient, patient verbalized she wants to ...Doesn't want to hurt anymore. Patient reports feeling as if she'll disappoint her daughter with her wishes. Patient not seen for OT. Patient's RN notified and aware.
--- NOTE | 2022-01-09 11:43 | P.CONNP_ITS ---
Assessment and Plan Assessment and plan (1) EFREN (acute kidney injury): Code(s): N17.9 - Acute kidney failure, unspecified Status: Acute Assessment and Plan: * suspect several issues at play: * CHF [exacerbation along with treatment of (IV diuretics)] * infection (pneumonia) * prerenal factors (?) * hypotension (systolic BP running as low as 80s systolic) * previous use of ARB * follow-up on renal ultrasound * check urine electrolytes and CPK * optimize hemodynamics as tolerated * follow trend of repeat labs and UOP (2) Stage 3b chronic kidney disease: Code(s): N18.32 - Chronic kidney disease, stage 3b Status: Chronic Assessment and Plan: * baseline creatinine runs ~ 1.2 - 1.4mg/dl * presumably due to HTN, DM, vascular disease, and age-related change (3) Hypoxia: Code(s): R09.02 - Hypoxemia Status: Acute Assessment and Plan: * presumably related to CHF and pneumonia * follow respiratory status with treatment of these issues (4) CHF (congestive heart failure): Qualifiers: Heart failure chronicity: acute on chronic Heart failure type: unspecified Qualified Code(s): I50.9 - Heart failure, unspecified Code(s): I50.9 - Heart failure, unspecified Status: Acute Assessment and Plan: * as evidence by admission imaging * difficult to treat with renal dysfunction and low BP * Echo results noted * clinically better (5) Pneumonia: Qualifiers: Laterality: unspecified laterality Lung location: unspecified part of lung Pneumonia type: due to unspecified organism Qualified Code(s): J18.9 - Pneumonia, unspecified organism Code(s): J18.9 - Pneumonia, unspecified organism Status: Acute Assessment and Plan: * as noted by admission imaging as well * on antibiotics with adjustments noted * follow culture data (6) Essential (primary) hypertension: Code(s): I10 - Essential (primary) hypertension Status: Chronic Assessment and Plan: * not an issue at this time * BP has been actually running on the low side * BP medications on hold (7) Anemia: Qualifiers: Anemia type: iron deficiency Iron deficiency anemia type: unspecified i mary deficiency Qualified Code(s): D50.9 - Iron deficiency anemia, unspecified Code(s): D64.9 - Anemia, unspecified Status: Acute Assessment and Plan: * likely due to CKD and acute illness * no need for ESAs * follow H/H (8) Diabetes mellitus: Qualifiers: Diabetes mellitus complication status: without complication 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 Will continue to follow. History of Present Illness Reason for Consult Consult date: 01/09/22 Reason for consult: acute renal failure (on chronic kidney disease) Chief Complaint Chief complaint: Pneumonia, CHF History of Present Illness Narrative: The patient is an 86-year-old female with a past medical history as outlined below who presented to [facility]
--- NOTE | 2022-01-09 11:43 | PM.CNNEP ---
Assessment and Plan Assessment and plan (1) EFREN (acute kidney injury): Code(s): N17.9 - Acute kidney failure, unspecified Status: Acute Assessment and Plan: suspect several issues at play: CHF [exacerbation along with treatment of (IV diuretics)] infection (pneumonia) prerenal factors (?) hypotension (systolic BP running as low as 80s systolic) previous use of ARB follow-up on renal ultrasound check urine electrolytes and CPK optimize hemodynamics as tolerated follow trend of repeat labs and UOP (2) Stage 3b chronic kidney disease: Code(s): N18.32 - Chronic kidney disease, stage 3b Status: Chronic Assessment and Plan: baseline creatinine runs ~ 1.2 - 1.4mg/dl presumably due to HTN, DM, vascular disease, and age-related change (3) Hypoxia: Code(s): R09.02 - Hypoxemia Status: Acute Assessment and Plan: presumably related to CHF and pneumonia follow respiratory status with treatment of these issues (4) CHF (congestive heart failure): Qualifiers: Heart failure chronicity: acute on chronic Heart failure type: unspecified Qualified Code(s): I50.9 - Heart failure, unspecified Code(s): I50.9 - Heart failure, unspecified Status: Acute Assessment and Plan: as evidence by admission imaging difficult to treat with renal dysfunction and low BP Echo results noted clinically better (5) Pneumonia: Qualifiers: Laterality: unspecified laterality Lung location: unspecified part of lung Pneumonia type: due to unspecified organism Qualified Code(s): J18.9 - Pneumonia, unspecified organism Code(s): J18.9 - Pneumonia, unspecified organism Status: Acute Assessment and Plan: as noted by admission imaging as well on antibiotics with adjustments noted follow culture data (6) Essential (primary) hypertension: Code(s): I10 - Essential (primary) hypertension Status: Chronic Assessment and Plan: not an issue at this time BP has been actually running on the low side BP medications on hold (7) Anemia: Qualifiers: Anemia type: iron deficiency Iron deficiency anemia type: unspecified iron deficiency Qualified Code(s): D50.9 - Iron deficiency anemia, unspecified Code(s): D64.9 - Anemia, unspecified Status: Acute Assessment and Plan: likely due to CKD and acute illness no need for ESAs follow H/H (8) Diabetes mellitus: Qualifiers: Diabetes mellitus complication status: without complication Diabetes mellitus half-way insulin use: with exterminator termite use Diabetes mellitus type: type 2 Qualified Code(s): E11.9 - Type 2 diabetes mellitus without complications; Z79.4 - intermediate (current) use of insulin Code(s): E11.9 - Type 2 diabetes mellitus without complications Status: Chronic Assessment and Plan: follow accuchecks glycemic control Long and extensive discussion (> 20 minutes) with family at bedside regarding her renal dysfunction as well as plan of care as above. Will continue to follow. History of Present Illness Reason for Consult Consult date: 01/09/22 Reason for consult: acute renal failure (on chronic kidney disease) Chief Complaint Chief complaint: Pneumonia, CHF History of Present Illness Narrative: The patient is an 86-year-old female with a past medical history as outlined below who presented to [facility] Emergency room with complaints of shortness of breath. Apparently, in the few days prior to her presentation to the emergency room, the patient has been having increasing shortness of breath. Apparently, she was recently treated for pneumonia as an outpatient with oral antibiotic therapy. She completed the antibiotic therapy but still felt short of breath and not any better than she was before starting this treatment. Since that time, she has had difficulty layi
[2022-01-09 12:23] LABS: Glucose Point of Care 168 mg/dl (65-105)
[2022-01-09] MEDS: SODIUM CHLOR 3% 15 ML NEB (RESPIRATORY THERAPY) 6 ML INHALATION (13:42)
--- NOTE | 2022-01-09 15:34 | PC.NURSE ---
1510-pt straight cath and urine specimen obtained and sent to lab.
[2022-01-09 15:36] LABS: Appearance Urine Clear (Clear); Bilirubin Urine Negative (Negative); Blood Urine Negative (Negative); Color Urine Yellow (Yellow); Glucose Urine UA Negative (Negative); Ketones Urine Negative (Negative); Leukocyte Esterase Ur Negative LEU/UL (NEGATIVE); Nitrate Urine Negative (Negative); Protein Urine Trace mg/dL (Negative); Urobilinogen Urine 0.2 mg/dL (<2.0)
[2022-01-09 15:44] LABS: Bacteria Urine Trace /hpf; RBC Urine 0-2 /hpf (0-2); Squamous Epithelial Cell Urine Rare /hpf (Few); WBC Urine 0-3 /hpf (0-3)
[2022-01-09 15:45] LABS: Add Urine Microscopic? YES; Creatinine Urine 100.3 mg/dL; Urea Random Urine 539 MG/DL
[2022-01-09 15:54] LABS: Sodium Urine Random < 5 meq/L
[2022-01-09 16:21] LABS: Glucose Point of Care 176 mg/dl (65-105)
[2022-01-09] MEDS: WARFARIN (*PBKC) 2 MG TABLET PO (16:41)
[2022-01-09 19:56] LABS: Glucose Point of Care 183 mg/dl (65-105)
--- NOTE | 2022-01-09 21:49 | PM.IMPN ---
Progress Note: A&P Assessment and Plan (1) Hypoxia: Code(s): R09.02 - Hypoxemia Status: Acute Assessment and Plan: 01/07/2022t readmitted for worsening pneumonia and pulmonary edema The patient was initially on a BiPAP and then placed on a CPAP patient was started on antibiotics and IV Lasix. Patient's respiratory status improved and she was placed on oxygen at 3 L per nasal cannula. Patient does not wear oxygen. Chest x-ray as mentioned above 1. Increasing opacities in bilateral mid and lower lung zones which could represent pneumonia or pulmonary edema. 2. Small bilateral pleural effusions. 3. Cardiomegaly. -CXR improved this morning but leukocytosis worsened overnight. Continues to require oxygen. Changed antibiotics to cefepime and vancomycin (pharmacy to dose). Will hold levofloxacin for now due to interaction with warfarin. -Leukocytosis improved on cefepime and vancomycin and will continue for now (2) CHF (congestive heart failure): Qualifiers: Heart failure chronicity: acute on chronic Heart failure type: unspecified Qualified Code(s): I50.9 - Heart failure, unspecified Code(s): I50.9 - Heart failure, unspecified Status: Acute Assessment and Plan: Echo w/ HFrEF w/ EF 40-45% w/ diastolic dysfunction, reduced RV systolic fx & abnormal tapse, RA enlargement, moderate MR & TR. Need a better understand of home/office BP. Will discuss records with daughter tomorrow. (3) Pneumonia: Qualifiers: Laterality: unspecified laterality Lung location: unspecified part of lung Pneumonia type: due to unspecified organism Qualified Code(s): J18.9 - Pneumonia, unspecified organism Code(s): J18.9 - Pneumonia, unspecified organism Status: Acute Assessment and Plan: The patient has already completed a home dose of azithromycin Levaquin outpatient. Started on zosyn but was never given vancomycin. -Cefepime and Vancomycin started today -MRSA swab sent (4) CKD (chronic kidney disease): Code(s): N18.9 - Chronic kidney disease, unspecified Status: Chronic Assessment and Plan: Stage 3-4. Her GFR is 29 today. Her creatinine is slightly worse her baseline is somewhere between 1.21 and 1.44. EFREN with creatinine 2.10 --> today. Patient with poor oral intake pre . Renal ultrasound notes cyst but otherwise unremarkable. -Nephrology consult (5) Chronic a-fib: Code(s): I48.20 - Chronic atrial fibrillation, unspecified Status: Acute Assessment and Plan: 01/07 watch daily INrs. INR at goal. Continue warfarin. (6) Anemia: Qualifiers: Anemia type: iron deficiency Iron deficiency anemia type: unspecified iron deficiency Qualified Code(s): D50.9 - Iron deficiency anemia, unspecified Code(s): D64.9 - Anemia, unspecified Status: Acute Assessment and Plan: continue to monitor. (7) CAD (coronary artery disease): Qualifiers: Coronary Disease-Associated Artery/Lesion type: unspecified vessel or lesion type [place] vs. transplanted heart: [place] heart Associated angina: without angina Qualified Code(s): I25.10 - Atherosclerotic heart disease of [place] coronary artery without angina pectoris Code(s): I25.10 - Atherosclerotic heart disease of [place] coronary artery without angina pectoris Status: Acute Assessment and Plan: The patient has a history of bypass graft. She is on metoprolol. Continue with aspirin. (8) Hyperlipidemia: Qualifiers: Hyperlipidemia type: unspecified Qualified Code(s): E78.5 - Hyperlipidemia, unspecified Code(s): E78.5 - Hyperlipidemia, unspecified Status: Acute Assessment and Plan: Continue with Zetia (9) Essential (primary) hypertension: Code(s): I10 - Essential (primary) hypertension Status: Acute Assessment and Plan: Continue with metoprolol, Lasix, an
[2022-01-10] VITALS (17 sets, daily range): BP systolic 105–129; BP diastolic 54–69; PULSE 108–143; RESP 16–20; TEMP 36.2–36.5; O2SAT 90–100
[2022-01-10 05:22] LABS: Basophils Percent Auto 0.1 % (0.2-1.2); Eosinophils Percent Auto 0.1 % (0-4.4); Hematocrit 32.7 % (37.0-47.0); Immature Granulocyte Absolute 0.12 K/mm3 (0.00-0.031); Immature Granulocyte Percent A 0.9 % (0-0.5); Lymphocytes Absolute Auto 0.52 K/mm3 (0.9-3.2); Lymphocytes Percent Auto 3.8 % (18.3-44.2); Mean Corpuscular HGB Conc 30.6 g/dl (32-36); Mean Corpuscular Hemoglobin 26.5 pg (26-34); Mean Corpuscular Volume 86.5 fl (80-100); Mean Platelet Volume 9.4 fl (7.4-10.4); Monocytes Percent Auto 7.3 % (2.6-8.5); Neutrophils Absolute Auto 12.1 K/mm3 (1.3-6.7); Neutrophils Percent Auto 87.8 % (45.5-73.1); Nucleated Red Blood Cells Perc 0.1 % (0.0-0.2); Platelet Count Result 293 k/mm3 (150-375); Red Blood Count 3.78 M/mm3 (4.2-5.4); Red Cell Distribution Width 16.5 % (11.5-14.5); White Blood Count 13.8 K/mm3 (4.5-10.0)
[2022-01-10 05:33] LABS: Anion Gap 5 mmol/L (8-16); Blood Urea Nitrogen 92 mg/dL (7-17); Calcium 7.6 mg/dL (8.4-10.2); Carbon Dioxide 26 mmol/L (22-30); Chloride 98 mmol/L (98-107); Estimated CRCL calculation 14 ml/min; Estimated Glomerular Filt Rate 17; Glucose 137 mg/dL (65-110); Potassium 4.6 mmol/L (3.4-5.0); Sodium 129 mmol/L (137-145)
[2022-01-10] MEDS: LEVOTHYROXINE SODIUM 125 MCG TABLET PO (05:34)
[2022-01-10 05:36] LABS: INR 2.2; Prothrombin Time 23.3 Seconds (11.1-14.7)
[2022-01-10 06:15] LABS: Hypochromasia 1+ (NORMAL); Ovalocytes 1+ (NORMAL); Platelet Estimate Adequate (Adequate)
[2022-01-10] MEDS: TOLNAFTATE 1% POWDER 45 GM BTL 1 APPLIC TOPICAL ×2 (08:44→18:36)
[2022-01-10] MEDS: CHOLECALCIFEROL 1,000 UNITS TABLET 3000 UNITS PO (08:46)
[2022-01-10] MEDS: ASPIRIN 81 MG ENTERIC TABLET PO (08:47)
[2022-01-10] MEDS: TOLTERODINE TARTRATE LA 4 MG CAP.ER.24H PO (08:47)
[2022-01-10] MEDS: MULTIVITAMINS THERAPEUTIC TAB (*BKC) 1 TABLET PO (08:47)
[2022-01-10] MEDS: FERROUS SULFATE 324 MG TABLET PO (08:47)
[2022-01-10] MEDS: EZETIMIBE 10 MG TABLET PO (08:48)
[2022-01-10] MEDS: SIMVASTATIN 20 MG TABLET 40 MG PO (08:48)
[2022-01-10 08:55] LABS: Glucose Point of Care 127 mg/dl (65-105)
[2022-01-10] MEDS: INSULIN GLARGINE (*BKC) 100 UNITS/ML 12 UNITS SUB-Q ×2 (08:58→20:26)
--- NOTE | 2022-01-10 09:14 | PM.IMPN ---
Progress Note: A&P Assessment and Plan (1) Hypoxia: Code(s): R09.02 - Hypoxemia Status: Acute Assessment and Plan: 2Pt readmitted for worsening pneumonia and pulmonary edema The patient was initially on a BiPAP and then placed on a CPAP patient was started on antibiotics and IV Lasix. Patient's respiratory status improved and she was placed on oxygen at 3 L per nasal cannula. Patient does not wear oxygen. Chest x-ray as mentioned above 1. Increasing opacities in bilateral mid and lower lung zones which could represent pneumonia or pulmonary edema. 2. Small bilateral pleural effusions. 3. Cardiomegaly. -CXR improved this morning but leukocytosis worsened overnight. Continues to require oxygen. Changed antibiotics to cefepime and vancomycin (pharmacy to dose). Will hold levofloxacin for now due to interaction with warfarin. -Leukocytosis improved on cefepime and vancomycin and will continue for now -01/10 Leukocytosis improved again this morning. MRSA negative. Will discontinue vancomycin for now. (2) CHF (congestive heart failure): Qualifiers: Heart failure chronicity: acute on chronic Heart failure type: unspecified Qualified Code(s): I50.9 - Heart failure, unspecified Code(s): I50.9 - Heart failure, unspecified Status: Acute Assessment and Plan: Echo w/ HFrEF w/ EF 40-45% w/ diastolic dysfunction, reduced RV systolic fx & abnormal tapse, RA enlargement, moderate MR & TR. Need a better understand of home/office BP. Will discuss records with daughter tomorrow. (3) Pneumonia: Qualifiers: Laterality: unspecified laterality Lung location: unspecified part of lung Pneumonia type: due to unspecified organism Qualified Code(s): J18.9 - Pneumonia, unspecified organism Code(s): J18.9 - Pneumonia, unspecified organism Status: Acute Assessment and Plan: The patient has already completed a home dose of azithromycin Levaquin outpatient. Started on zosyn but was never given vancomycin. MRSA swab is negative. Will continue cefepime and discontinue vancomycin. (4) CKD (chronic kidney disease): Code(s): N18.9 - Chronic kidney disease, unspecified Status: Chronic Assessment and Plan: Stage 3-4. Her GFR is 29 today. Her creatinine is slightly worse her baseline is somewhere between 1.21 and 1.44. EFREN with creatinine 2.70. Renal ultrasound notes cyst but otherwise unremarkable. Furea 16.1%. Creatinine continues to increase. -Appreciate Nephrology recs (5) Chronic a-fib: Code(s): I48.20 - Chronic atrial fibrillation, unspecified Status: Acute Assessment and Plan: INR at goal. Continue warfarin. Continues to have Afib w/ RVR. HR 100s-140s. Gave reduced dose of digoxin this morning without improvement. Gave amiodarone 150 mg IV x1 with no improvement. -Will give another dose of amiodarone 150 mg IV x 1 (6) Anemia: Qualifiers: Anemia type: iron deficiency Iron deficiency anemia type: unspecified iron deficiency Qualified Code(s): D50.9 - Iron deficiency anemia, unspecified Code(s): D64.9 - Anemia, unspecified Status: Acute Assessment and Plan: continue to monitor. (7) CAD (coronary artery disease): Qualifiers: Coronary Disease-Associated Artery/Lesion type: unspecified vessel or lesion type [place] vs. transplanted heart: [place] heart Associated angina: without angina Qualified Code(s): I25.10 - Atherosclerotic heart disease of [place] coronary artery without angina pectoris Code(s): I25.10 - Atherosclerotic heart disease of [place] coronary artery without angina pectoris Status: Acute Assessment and Plan: The patient has a history of bypass graft. She is on metoprolol. Continue with aspirin. (8) Hyperlipidemia: Qualifiers: Hyperlipidemia type: unspecified Qualified Code(s): E78.5 - Hyperlipidemia
--- NOTE | 2022-01-10 10:00 | PCPTNOTE ---
The patient treatment was not able to be completed on this date due to patient being unavailable. Will plan to continue treatment per plan of care.
[2022-01-10] MEDS: DIGOXIN INJ 250 MCG/ML 2 ML AMP (*BKC) 125 MCG IV PUSH (10:52)
[2022-01-10 11:43] LABS: Glucose Point of Care 156 mg/dl (65-105)
--- NOTE | 2022-01-10 12:01 | P.PNNP_ITS ---
Progress Note: A&P Assessment and Plan (1) EFREN (acute kidney injury): Code(s): N17.9 - Acute kidney failure, unspecified Status: Acute Assessment and Plan: * suspect several issues at play: * CHF [exacerbation along with treatment of (IV diuretics)] * infection (pneumonia) * prerenal factors (?) * hypotension (systolic BP running as low as 80s systolic) * previous use of ARB * evaluation to date: * urine electrolytes pre-renal * renal ultrasound w/o obstruction or acute pathology * urinalysis bland * optimize hemodynamics as tolerated * follow trend of repeat labs and UOP (2) Stage 3b chronic kidney disease: Code(s): N18.32 - Chronic kidney disease, stage 3b Status: Chronic Assessment and Plan: * baseline creatinine runs ~ 1.2 - 1.4mg/dl * presumably due to HTN, DM, vascular disease, and age-related change (3) Hypoxia: Code(s): R09.02 - Hypoxemia Status: Acute Assessment and Plan: * presumably related to CHF and pneumonia * follow respiratory status with treatment of these issues (4) CHF (congestive heart failure): Qualifiers: Heart failure chronicity: acute on chronic Heart failure type: unspecified Qualified Code(s): I50.9 - Heart failure, unspecified Code(s): I50.9 - Heart failure, unspecified Status: Acute Assessment and Plan: * as evidence by admission imaging * difficult to treat with renal dysfunction and low BP * Echo results noted * clinically better (5) Pneumonia: Qualifiers: Laterality: unspecified laterality Lung location: unspecified part of lung Pneumonia type: due to unspecified organism Qualified Code(s): J18.9 - Pneumonia, unspecified organism Code(s): J18.9 - Pneumonia, unspecified organism Status: Acute Assessment and Plan: * as noted by admission imaging as well * on antibiotics with adjustments noted * follow culture data (6) Essential (primary) hypertension: Code(s): I10 - Essential (primary) hypertension Status: Chronic Assessment and Plan: * not an issue at this time * BP has been actually running on the low side * BP medications on hold (7) Anemia: Qualifiers: Anemia type: iron deficiency Iron deficiency anemia type: unspecified iron deficiency Qualified Code(s): D50.9 - Iron deficiency anemia, unspecified Code(s): D64.9 - Anemia, unspecified Status: Acute Assessment and Plan: * likely due to CKD and acute illness * no need for ESAs * follow H/H (8) Diabetes mellitus: Qualifiers: Diabetes mellitus type: type 2 Diabetes mellitus correction insulin use: with long term acute care registered nurse use Diabetes mellitus complication status: without complication Qualified Code(s): E11.9 - Type 2 diabetes mellitus without complications; Z79.4 - intermission coordinator (current) use of insulin Code(s): E11.9 - Type 2 diabetes mellitus without complications Status: Chronic Assessment and Plan: * follow accuchecks * on Lantus and SSI Will continue to follow. Subjective Date/time seen: 01/10/22 12:01 States she does not feel well at the time of my visit; she apparently told nursing that she is tired of all this in general; unfortunately, renal func tion continues to decline as well despite current interventions/therapy. Exam Narrative: General: elderly frail appearing female in NAD Heart: normal S1 and S2; no rub Lungs: decreased at bases Abdomen
--- NOTE | 2022-01-10 12:01 | PM.PNNEP ---
Progress Note: A&P Assessment and Plan (1) EFREN (acute kidney injury): Code(s): N17.9 - Acute kidney failure, unspecified Status: Acute Assessment and Plan: suspect several issues at play: CHF [exacerbation along with treatment of (IV diuretics)] infection (pneumonia) prerenal factors (?) hypotension (systolic BP running as low as 80s systolic) previous use of ARB evaluation to date: urine electrolytes pre-renal renal ultrasound w/o obstruction or acute pathology urinalysis bland optimize hemodynamics as tolerated follow trend of repeat labs and UOP (2) Stage 3b chronic kidney disease: Code(s): N18.32 - Chronic kidney disease, stage 3b Status: Chronic Assessment and Plan: baseline creatinine runs ~ 1.2 - 1.4mg/dl presumably due to HTN, DM, vascular disease, and age-related change (3) Hypoxia: Code(s): R09.02 - Hypoxemia Status: Acute Assessment and Plan: presumably related to CHF and pneumonia follow respiratory status with treatment of these issues (4) CHF (congestive heart failure): Qualifiers: Heart failure chronicity: acute on chronic Heart failure type: unspecified Qualified Code(s): I50.9 - Heart failure, unspecified Code(s): I50.9 - Heart failure, unspecified Status: Acute Assessment and Plan: as evidence by admission imaging difficult to treat with renal dysfunction and low BP Echo results noted clinically better (5) Pneumonia: Qualifiers: Laterality: unspecified laterality Lung location: unspecified part of lung Pneumonia type: due to unspecified organism Qualified Code(s): J18.9 - Pneumonia, unspecified organism Code(s): J18.9 - Pneumonia, unspecified organism Status: Acute Assessment and Plan: as noted by admission imaging as well on antibiotics with adjustments noted follow culture data (6) Essential (primary) hypertension: Code(s): I10 - Essential (primary) hypertension Status: Chronic Assessment and Plan: not an issue at this time BP has been actually running on the low side BP medications on hold (7) Anemia: Qualifiers: Anemia type: iron deficiency Iron deficiency anemia type: unspecified iron deficiency Qualified Code(s): D50.9 - Iron deficiency anemia, unspecified Code(s): D64.9 - Anemia, unspecified Status: Acute Assessment and Plan: likely due to CKD and acute illness no need for ESAs follow H/H (8) Diabetes mellitus: Qualifiers: Diabetes mellitus type: type 2 Diabetes mellitus terminal superintendent insulin use: with intermediate use Diabetes mellitus complication status: without complication Qualified Code(s): E11.9 - Type 2 diabetes mellitus without complications; Z79.4 - jail (current) use of insulin Code(s): E11.9 - Type 2 diabetes mellitus without complications Status: Chronic Assessment and Plan: follow accuchecks on Lantus and SSI Will continue to follow. Subjective Date/time seen: 01/10/22 12:01 States she does not feel well at the time of my visit; she apparently told nursing that she is tired of all this in general; unfortunately, renal function continues to decline as well despite current interventions/therapy. Exam Narrative: General: elderly frail appearing female in NAD Heart: normal S1 and S2; no rub Lungs: decreased at bases Abdomen: soft, nontender, nondistended, positive bowel sounds Extremities: no cyanosis or clubbing; trace edema Skin: warm and dry Objective Data Vital Signs Vital Signs: Vital Signs Temp Pulse Resp BP Pulse Ox 01/10/22 11:59 36.2 C L 132 H 16 129/65 99 01/10/22 10:52 143 H 01/10/22 08:00 36.4 C 128 H 16 127/54 L 97 01/10/22 05:56 122 H 01/10/22 04:00 36.5 C 110 H 18 124/67 97 01/10/22 02:00 114 H 01/09/22 23:37 118 H 18 100 01/09/22
[2022-01-10] MEDS: AMIODARONE 150 MG/D5W 100 ML 150 MG/100 ML BAG 600 MG IV CONT (13:59)
[2022-01-10 16:59] LABS: Glucose Point of Care 170 mg/dl (65-105)
[2022-01-10] MEDS: AMIODARONE 360 MG/D5W 200 ML 360 MG/200 ML BAG 33.33 MG IV CONT (18:35)
[2022-01-10] MEDS: WARFARIN (*PBKC) 2 MG TABLET PO (18:36)
[2022-01-10 20:25] LABS: Glucose Point of Care 200 mg/dl (65-105)
[2022-01-10] MEDS: AMIODARONE 360 MG/D5W 200 ML 360 MG/200 ML BAG 16.67 MG IV CONT (23:52)
[2022-01-11] VITALS (14 sets, daily range): BP systolic 61–116; BP diastolic 43–52; PULSE 73–105; RESP 17–24; TEMP 31.2–36.6; O2SAT 75–99
[2022-01-11] MEDS: SODIUM CHLOR 3% 15 ML NEB (RESPIRATORY THERAPY) 6 ML INHALATION (05:20)
[2022-01-11 05:33] LABS: Estimated CRCL calculation 13 ml/min; Estimated Glomerular Filt Rate 15
[2022-01-11 05:35] LABS: INR 2.5; Prothrombin Time 26.3 Seconds (11.1-14.7)
[2022-01-11] MEDS: LEVOTHYROXINE SODIUM 125 MCG TABLET PO (06:05)
[2022-01-11 08:26] LABS: Basophils Percent Auto 0.1 % (0.2-1.2); Hematocrit 35.2 % (37.0-47.0); Hemoglobin 10.5 g/dL (12.0-15.0); Immature Granulocyte Percent A 0.7 % (0-0.5); Lymphocytes Absolute Auto 0.24 K/mm3 (0.9-3.2); Lymphocytes Percent Auto 1.6 % (18.3-44.2); Mean Corpuscular HGB Conc 29.8 g/dl (32-36); Mean Corpuscular Hemoglobin 26.3 pg (26-34); Mean Corpuscular Volume 88.2 fl (80-100); Mean Platelet Volume 9.6 fl (7.4-10.4); Monocytes Absolute Auto 0.9 K/mm3 (0.1-0.6); Neutrophils Absolute Auto 13.6 K/mm3 (1.3-6.7); Neutrophils Percent Auto 91.6 % (45.5-73.1); Nucleated Red Blood Cells Perc 0.1 % (0.0-0.2); Platelet Count Result 349 k/mm3 (150-375); Red Blood Count 3.99 M/mm3 (4.2-5.4); Red Cell Distribution Width 16.4 % (11.5-14.5); White Blood Count 14.8 K/mm3 (4.5-10.0)
[2022-01-11] MEDS: LACTATED RINGERS 1,000 ML 999 ML IV CONT (08:30)
[2022-01-11 08:31] LABS: Alanine Aminotransferase 23 U/L (4-35); Albumin Level 2.9 g/dL (3.5-5.1); Alkaline Phosphatase 63 U/L (38-126); Anion Gap 5 mmol/L (8-16); Aspartate Amino Transferase 42 U/L (14-36); Bilirubin,Total 0.3 mg/dL (0.2-1.3); Blood Urea Nitrogen 98 mg/dL (7-17); Calcium 7.7 mg/dL (8.4-10.2); Carbon Dioxide 25 mmol/L (22-30); Chloride 96 mmol/L (98-107); Estimated CRCL calculation 12 ml/min; Estimated Glomerular Filt Rate 15; Glucose 195 mg/dL (65-110); Potassium 5.1 mmol/L (3.4-5.0); Sodium 126 mmol/L (137-145)
[2022-01-11 09:07] LABS: Platelet Estimate Adequate (Adequate)
[2022-01-11 09:08] LABS: Ovalocytes 1+ (NORMAL)
[2022-01-11 09:11] LABS: Glucose Point of Care 202 mg/dl (65-105)
--- NOTE | 2022-01-11 09:38 | PCPTNOTE ---
RN reports that pt is potentially going hospice and BP has been running 60s/40s this morning. Will hold therapy at this time until pt/family reach a decision on plan of care.
--- NOTE | 2022-01-11 09:57 | PCNFU ---
Nutrition Follow-Up Complete: Increased Protein needs as related to wounds as evidenced by stage II PU on coccyx Goal:Adueqate Intake of at least 75% of meals/supplements Pt is not progressing towards goal. Pt current nutrition is Diabetic consistent carb with glucerna shakes and JULIANNE in place but being kept NPO at this time. Last recorded weight is 78 kg - stable at this time. Bowel Motility:01/10 Labs Reviewed: Meds Noted: Skin: Continues with a stage II to coccyx Additional Notes: Pt is waiting for hospice referral. Currently NPO No further nutrition needs at this time. Comfort measures as needed.
--- NOTE | 2022-01-11 11:16 | PCOTNOTE ---
Attempted to see patient this date, however RN advised not to see.
--- NOTE | 2022-01-11 11:35 | P.PNNP_ITS ---
Progress Note: A&P Assessment and Plan (1) EFREN (acute kidney injury): Code(s): N17.9 - Acute kidney failure, unspecified Status: Acute Assessment and Plan: * suspect several issues at play: * CHF [exacerbation along with treatment of (IV diuretics)] * infection (pneumonia) * prerenal factors (?) * hypotension (systolic BP running as low as 80s systolic) * previous use of ARB * evaluation to date: * urine electrolytes pre-renal * renal ultrasound w/o obstruction or acute pathology * urinalysis bland * optimize hemodynamics as tolerated * follow trend of repeat labs and UOP (2) Stage 3b chronic kidney disease: Code(s): N18.32 - Chronic kidney disease, stage 3b Status: Chronic Assessment and Plan: * baseline creatinine runs ~ 1.2 - 1.4mg/dl * presumably due to HTN, DM, vascular disease, and age-related change (3) Hypoxia: Code(s): R09.02 - Hypoxemia Status: Acute Assessment and Plan: * presumably related to CHF and pneumonia * follow respiratory status with treatment of these issues (4) CHF (congestive heart failure): Qualifiers: Heart failure chronicity: acute on chronic Heart failure type: unspecified Qualified Code(s): I50.9 - Heart failure, unspecified Code(s): I50.9 - Heart failure, unspecified Status: Acute Assessment and Plan: * as evidence by admission imaging * difficult to treat with renal dysfunction and low BP * Echo results noted * clinically better (5) Pneumonia: Qualifiers: Laterality: unspecified laterality Lung location: unspecified part of lung Pneumonia type: due to unspecified organism Qualified Code(s): J18.9 - Pneumonia, unspecified organism Code(s): J18.9 - Pneumonia, unspecified organism Status: Acute Assessment and Plan: * as noted by admission imaging as well * on antibiotics with adjustments noted * follow culture data (6) Essential (primary) hypertension: Code(s): I10 - Essential (primary) hypertension Status: Chronic Assessment and Plan: * not an issue at this time * BP has been actually running on the low side * BP medications on hold (7) Anemia: Qualifiers: Anemia type: iron deficiency Iron deficiency anemia type: unspecified iron deficiency Qualified Code(s): D50.9 - Iron deficiency anemia, unspecified Code(s): D64.9 - Anemia, unspecified Status: Acute Assessment and Plan: * likely due to CKD and acute illness * no need for ESAs * follow H/H (8) Diabetes mellitus: Qualifiers: Diabetes mellitus complication status: without complication Diabetes mellitus middle or intermediate school principal insulin use: with middle or intermediate school principal use Diabetes mellitus type: type 2 Qualified Code(s): E11.9 - Type 2 diabetes mellitus without complications; Z79.4 - buttermilk drier operator (current) use of insulin Code(s): E11.9 - Type 2 diabetes mellitus without complications Status: Chronic Assessment and Plan: * follow accuchecks * on Lantus and SSI Comfort measures seems appropriate given ongoing deterioration since admission; family aware of change is status since earlier this AM. Will continue to follow. Subjective Date/time seen: 01/11/22 11:35 Hospice consulted given patient's statements yesterday; renal function worsening now associated with hyponatremia and rising K+; patient quite lethargic and BP quite low as well. Exam Narrative: General: elderly
--- NOTE | 2022-01-11 11:35 | PM.PNNEP ---
Progress Note: A&P Assessment and Plan (1) EFREN (acute kidney injury): Code(s): N17.9 - Acute kidney failure, unspecified Status: Acute Assessment and Plan: suspect several issues at play: CHF [exacerbation along with treatment of (IV diuretics)] infection (pneumonia) prerenal factors (?) hypotension (systolic BP running as low as 80s systolic) previous use of ARB evaluation to date: urine electrolytes pre-renal renal ultrasound w/o obstruction or acute pathology urinalysis bland optimize hemodynamics as tolerated follow trend of repeat labs and UOP (2) Stage 3b chronic kidney disease: Code(s): N18.32 - Chronic kidney disease, stage 3b Status: Chronic Assessment and Plan: baseline creatinine runs ~ 1.2 - 1.4mg/dl presumably due to HTN, DM, vascular disease, and age-related change (3) Hypoxia: Code(s): R09.02 - Hypoxemia Status: Acute Assessment and Plan: presumably related to CHF and pneumonia follow respiratory status with treatment of these issues (4) CHF (congestive heart failure): Qualifiers: Heart failure chronicity: acute on chronic Heart failure type: unspecified Qualified Code(s): I50.9 - Heart failure, unspecified Code(s): I50.9 - Heart failure, unspecified Status: Acute Assessment and Plan: as evidence by admission imaging difficult to treat with renal dysfunction and low BP Echo results noted clinically better (5) Pneumonia: Qualifiers: Laterality: unspecified laterality Lung location: unspecified part of lung Pneumonia type: due to unspecified organism Qualified Code(s): J18.9 - Pneumonia, unspecified organism Code(s): J18.9 - Pneumonia, unspecified organism Status: Acute Assessment and Plan: as noted by admission imaging as well on antibiotics with adjustments noted follow culture data (6) Essential (primary) hypertension: Code(s): I10 - Essential (primary) hypertension Status: Chronic Assessment and Plan: not an issue at this time BP has been actually running on the low side BP medications on hold (7) Anemia: Qualifiers: Anemia type: iron deficiency Iron deficiency anemia type: unspecified iron deficiency Qualified Code(s): D50.9 - Iron deficiency anemia, unspecified Code(s): D64.9 - Anemia, unspecified Status: Acute Assessment and Plan: likely due to CKD and acute illness no need for ESAs follow H/H (8) Diabetes mellitus: Qualifiers: Diabetes mellitus complication status: without complication Diabetes mellitus terminal computer operator insulin use: with group home use Diabetes mellitus type: type 2 Qualified Code(s): E11.9 - Type 2 diabetes mellitus without complications; Z79.4 - [facility] (current) use of insulin Code(s): E11.9 - Type 2 diabetes mellitus without complications Status: Chronic Assessment and Plan: follow accuchecks on Lantus and SSI Comfort measures seems appropriate given ongoing deterioration since admission; family aware of change is status since earlier this AM. Will continue to follow. Subjective Date/time seen: 01/11/22 11:35 Hospice consulted given patient's statements yesterday; renal function worsening now associated with hyponatremia and rising K+; patient quite lethargic and BP quite low as well. Exam Narrative: General: elderly frail appearing female in NAD Heart: normal S1 and S2; no rub Lungs: decreased at bases Abdomen: soft, nontender, nondistended, positive bowel sounds Extremities: no cyanosis or clubbing; trace edema Skin: warm and dry Objective Data Vital Signs Vital Signs: Vital Signs Temp Pulse Resp BP Pulse Ox 01/11/22 09:31 31.2 C L 84 24 H 61/49 L 75 L 01/11/22 08:54 95 01/11/22 06:00 94 01/11/22 05:27 76 18 01/11/22 05:19 73 17 01/11/22 04:00 36.6 C
--- NOTE | 2022-01-11 11:44 | PC.NURSE ---
Patient blood pressure this morning was very low. Notified MD. Patient is a DNR and patient has expressed several times that she wishes to be on hospice and wants to . Doctor called patients daughter to discuss care plan. Family and patient decided to withdraw care and consult hospice. Care coordination has been notified.
[2022-01-11 12:15] LABS: Glucose Point of Care 173 mg/dl (65-105)
--- NOTE | 2022-01-11 13:33 | PM.IMPN ---
Progress Note: A&P Assessment and Plan (1) Hypoxia: Code(s): R09.02 - Hypoxemia Status: Acute Assessment and Plan: 01/07/2022t readmitted for worsening pneumonia and pulmonary edema The patient was initially on a BiPAP and then placed on a CPAP patient was started on antibiotics and IV Lasix. Patient's respiratory status improved and she was placed on oxygen at 3 L per nasal cannula. Patient does not wear oxygen. Chest x-ray as mentioned above 1. Increasing opacities in bilateral mid and lower lung zones which could represent pneumonia or pulmonary edema. 2. Small bilateral pleural effusions. 3. Cardiomegaly. -CXR improved this morning but leukocytosis worsened overnight. Continues to require oxygen. Changed antibiotics to cefepime and vancomycin (pharmacy to dose). Will hold levofloxacin for now due to interaction with warfarin. -Leukocytosis improved on cefepime and vancomycin and will continue for now -01/10 Leukocytosis improved again this morning. MRSA negative. Will discontinue vancomycin for now. -01/11 Patient hypotensive with confusion likely due to her hypoperfusion from the hypotension. Patient was given 1L bolus to help keep BP elevated in hope that her other daughter could come to the hospital. Daughter Alyssia and family agree to no heroic measures as patient is DNR and would like to proceed with hospice care. Prior to becoming confused the patient had stated she wished to do hospice and now that she is hypotensive and confused the daughter Alyssia, is making the decision for her to proceed with hospice care. (2) CHF (congestive heart failure): Qualifiers: Heart failure chronicity: acute on chronic Heart failure type: unspecified Qualified Code(s): I50.9 - Heart failure, unspecified Code(s): I50.9 - Heart failure, unspecified Status: Acute Assessment and Plan: Echo w/ HFrEF w/ EF 40-45% w/ diastolic dysfunction, reduced RV systolic fx & abnormal tapse, RA enlargement, moderate MR & TR. Need a better understand of home/office BP. (3) Pneumonia: Qualifiers: Laterality: unspecified laterality Lung location: unspecified part of lung Pneumonia type: due to unspecified organism Qualified Code(s): J18.9 - Pneumonia, unspecified organism Code(s): J18.9 - Pneumonia, unspecified organism Status: Acute Assessment and Plan: The patient has already completed a home dose of azithromycin Levaquin outpatient. Started on zosyn but was never given vancomycin. MRSA swab is negative. Vancomycin discontinued 01/10. Will discontinue antibiotics at this time as patient is hospice. (4) CKD (chronic kidney disease): Code(s): N18.9 - Chronic kidney disease, unspecified Status: Chronic Assessment and Plan: Stage 3-4. Her GFR is 29 today. Her creatinine is slightly worse her baseline is somewhere between 1.21 and 1.44. EFREN with creatinine 2.70. Renal ultrasound notes cyst but otherwise unremarkable. Furea 16.1%. Creatinine continues to increase. -Appreciate Nephrology recs (5) Chronic a-fib: Code(s): I48.20 - Chronic atrial fibrillation, unspecified Status: Acute Assessment and Plan: INR at goal. Continue warfarin. Continues to have Afib w/ RVR. HR 100s-140s. Gave reduced dose of digoxin this morning without improvement. Gave amiodarone 150 mg IV x1 with no improvement. Amiodarone ggt started with improved rate control. The amiodarine ggt has been discontinued as the patient is hospice. (6) Anemia: Qualifiers: Anemia type: iron deficiency Iron deficiency anemia type: unspecified iron deficiency Qualified Code(s): D50.9 - Iron deficiency anemia, unspecified Code(s): D64.9 - Anemia, unspecified Status: Acute Assessment and Plan: continue to monitor. (7) CAD (coronary artery disease): Qualifiers: Coronary Disease-Associated Artery/Le
--- NOTE | 2022-01-11 14:34 | PM.DDS ---
Discharge Summary Date and Time Date of : 01/11/22 Time of : 14:59 Provider Pronounced By: Arely Muse RN and Rianna Arizmendi RN Probable Cause of Probable Cause of : Pneumonia, congestive heart failure and acute renal failure Summary Hospital Course: 86F with a past medical history of CAD, CKD, Atrial fibrillation, shoulder pain, DM c/w diabetic retinopathy, hypothyroidism, hyperlipidemia, anemia and elevated LFTs was admitted for Pneumonia and acute on chronic CHF exacerbation. Patient hypoxia intially required Bipap while giving IV furosemide. The patient was transition to nasal cannula. The pneumonia was initially treated with vancomycin and zosyn as patient had failed outpatient treatment levofloxacin and azithromycin. Echo on 01/08 showed EF 40-45% with moderate MR & TR, biatrial enlargement, atrial fibrillation. Patient leukocytosis worsened on 01/08, so antibiotics were change to cefepime and vancomycin. Levofloxacin could not be given due to renal function and interaction with warfarin and was likely the cause of supratheraputic INR on initial presentation. Patient blood pressure had been low, so her home medications were held on admission. Patient developed acute kidney injury and nephrology was consulted. Throughout hospitalization it was reported by nursing and family the patient stated she wanted to . On 01/10/2022 the patienet stated to me she wanted to . At this time, she was fully alert and oriented. She said she understood what she as asking to have and said she wanted to go home to her daughter's house with hospice care. This was discussed with the daughter and the decision was made for the patient to continue treatment with the plan for hospice if after treatment she failed to do better in the [facility]. The next morning around 0730 the nurse called saying the patients blood pressure was 70/40s and that she was breathing abnormally. The daughter was called and reiterated she did not want any extraordinary measures taken to save the patient's life. A 1L bolus was given to help the blood pressure in the hope it would sustain the patient until her other daughter from 2 hours away could arrive. Hospice care orders were placed. The patient around 1459 the same day. Additional Data Confirmation of as documented by pronouncing clinician: Pupillary Reflex, Palpable Pulses, Response to Stimuli, Heart Tones and Breath Sounds Name of Provider Notified: Dr. Faust Time Provider Notified: 15:01 Provider Requests Autopsy: No Family Requests Autopsy: No Lead Mason Tender Notified: Yes Date [facility] Notified of : 01/11/22 Time [facility] Notified of : 15:08 Advance directives: Yes Hospice patient?: Yes
--- NOTE | 2022-01-11 16:25 | PC.NURSE ---
Patient and 3 three rings were removed from patients fingers and given to her daughter Marisol Ye.
== END 2022-01-11 14:59 | disposition expired | DRG 193 ==
LOC: ANHED 10:10 → ANHIMU 11:46
PROVIDERS: Emergency Medicine; Family Medicine; Nurse Practitioner; Admitting Provider Internal Medicine; Emergency Provider Emergency Medicine; PCP Nurse Practitioner Family; Visit Provider Family Medicine
DX: J18.9 Pneumonia, unspecified organism (principal); I50.43 Acute on chronic combined systolic (congestive) and diastolic (congestive) heart failure; I13.0 Hypertensive heart and chronic kidney disease with heart failure and stage 1 through stage 4 chronic kidney disease, or unspecified chronic kidney disease; N17.9 Acute kidney failure, unspecified; N18.4 Chronic kidney disease, stage 4 (severe); I48.20 Chronic atrial fibrillation, unspecified; Z20.822 Contact with and (suspected) exposure to COVID-19; E11.22 Type 2 diabetes mellitus with diabetic chronic kidney disease; R09.02 Hypoxemia; D50.9 Iron deficiency anemia, unspecified; E78.5 Hyperlipidemia, unspecified; E03.9 Hypothyroidism, unspecified; L89.152 Pressure ulcer of sacral region, stage 2; D63.1 Anemia in chronic kidney disease; E11.319 Type 2 diabetes mellitus with unspecified diabetic retinopathy without macular edema; I25.10 Atherosclerotic heart disease of native coronary artery without angina pectoris; Z79.4 Long term (current) use of insulin; Z79.82 Long term (current) use of aspirin; Z85.828 Personal history of other malignant neoplasm of skin; Z95.1 Presence of aortocoronary bypass graft
CPT/HCPCS: 36415; 36600; 71045; 71250; 76770; 80048; 80053; 81001; 82565; 82570; 82805; 82948; 83036; 83605; 83735; 83880; 84300; 84443; 84484; 84540; 85025; 85027; 85610; 85730; 86140; 87040; 87081; 87502; 93005; 93306; 94002; 94003; 94640; 96365; 96375; 97110; 97161; 97165; 97535; 99285; A9270; C9803; J0282; J0692; J1160; J1815; J1940; J2543; J2930; J3370; J7040; J7120; U0003; U0005